=== PATIENT | female | born 1980 | race Caucasian/White ===

== ENCOUNTER 2017-12-11 19:13 | Emergency (ER) | END 2017-12-11 20:48 | disposition home or self-care (01) ==

== ENCOUNTER 2019-04-22 21:27 | Emergency (ER) | payer MEDICAID ==
[~2019-04-22] VITALS: Ht 152.4 cm; Wt 64.6 kg
[~2019-04-22 21:27] MED LIST: AMOX500C2 PO; IBUP-1542 PO; MED4DP PO
[2019-04-22 21:36] VITALS: Ht 152.4 cm; Wt 64.6 kg
[2019-04-23] MEDS ORDERED: SOD CHLORIDE 0.9% 1,000 ML IV STA (01:40)
[2019-04-23] MEDS ORDERED: KETOROLAC 15 MG INJ IV STA (01:40)
[2019-04-23] MEDS ORDERED: ALPRAZOLAM 0.25 MG TAB PO ONE (02:00)
[2019-04-23 04:00] VITALS: BP 126/76; PULSE 80; RESP 16
== END 2019-04-23 04:05 | disposition home or self-care (01) ==
LOC: E/R 21:27
DX: R07.9 Chest pain, unspecified (principal); I10 Essential (primary) hypertension; F41.9 Anxiety disorder, unspecified
CPT/HCPCS: 36415; 71045; 80053; 83690; 84484; 85025; 93005; 96374; J1885; J7030; Z7502; Z7610